=== PATIENT | male | born 1970 | race Caucasian/White ===

== ENCOUNTER 2016-12-17 18:58 | Emergency (ER) | payer OTHER | END 2016-12-17 19:46 | disposition home or self-care (01) | LOC: ER 18:58 | DX: S21.259A Open bite of unspecified back wall of thorax without penetration into thoracic cavity, initial encounter (principal); L03.312 Cellulitis of back [any part except buttock and flank]; W57.XXXA Bitten or stung by nonvenomous insect and other nonvenomous arthropods, initial encounter; Z79.899 Other long term (current) drug therapy; F17.210 Nicotine dependence, cigarettes, uncomplicated | CPT/HCPCS: 99281 ==